=== PATIENT | female | born 1960 | race African-American/Black ===

== ENCOUNTER → 2016-03-29 | Outpatient (CLI) | payer BC ==
[2014-02-26 10:55] VITALS: BP 133/64
[~2016-03-29] MED LIST: AMLO5TAB2 PO; CLON1TAB3 PO; ESCI20TA PO; FERR12.5 PO; FERR500P8 PO; HYDR25TA9 PO; LISI40TA PO; METF500T4 PO; METF850T2 PO; OMEP20CA9 PO
--- NOTE | 2016-03-29 16:47 | KCIC ---
PROCEDURE Maxillofacial CT without contrast. HISTORY Chronic sinusitis, on antibiotics and steroids, congestion and drainage TECHNIQUE Noncontrast CT imaging was performed of the maxillofacial region, multiplanar reconstruction images submitted. Exposure: One or more of the following individualized dose reduction techniques were utilized for this exam: 1. Automated exposure control. 2. Adjustment of the mA and/or kV according to patient size. 3. Use of iterative reconstruction technique. COMPARISON None FINDINGS There are no air-fluid levels of the paranasal sinuses. Paranasal sinuses are mostly aerated. There is a small mucous retention cyst of the inferior left maxillary sinus on the order of 0.8 centimeters. There is very mild mucosal thickening near the left ostiomeatal unit. Right ostiomeatal unit is patent. Mastoid air cells are aerated. Globes are symmetric in size and density. IMPRESSION Paranasal sinuses are overall aerated, no air-fluid levels. There is small left maxillary sinus mucous retention cyst, also very minimal mucosal thickening near the left ostiomeatal unit. Electronically signed by: Aren Acosta MD (Mar 29, 2016 16:46:22)
== END | disposition home or self-care (01) ==
LOC: KCIC CT 16:00
PROVIDERS: ATTEND Otolaryngology
DX: J32.8 Other chronic sinusitis (principal)
CPT/HCPCS: 70486

== ENCOUNTER 2016-10-11 18:11 | Emergency (ER) | payer BC ==
[~2016-10-11] VITALS: Ht 170.2 cm; Wt 133.8 kg
[~2016-10-11 18:11] MED LIST changes: -ESCI20TA PO; +ESCITALOPRAM OX20 MG PO
[2016-10-11 18:15] VITALS: BP 164/75
[2016-10-11] MEDS ORDERED: CETI10TA16 PO (18:25)
[2016-10-11] MEDS ORDERED: HYDR-2762 PO (18:25)
[2016-10-11] MEDS ORDERED: METF-620 PO (18:25)
[2016-10-11] MEDS ORDERED: CYCL10TA2 PO (18:25)
[2016-10-11] MEDS ORDERED: NAPR500T PO (18:34)
--- NOTE | 2016-10-11 18:35 | PHYS DOC ---
Past Medical History Past Medical History: Diabetes-Type II, Hypertension Past Surgical History: Appendectomy Alcohol Use: None Drug Use: None Adult General Chief Complaint Chief Complaint: LOWER BACK PAIN OR INJURY HPI HPI Patient is a 56 year old female presents to the emergency department with a two -week history of low back pain. Patient was seen by her primary care provider one week ago and placed on Flexeril and hydrocodone. She states the pain is persistent. She denies abdominal pain. She denies loss of bowel or bladder control. She denies loss of function or loss of sensation of lower extremity's. Review of Systems Review of Systems Constitutional: Denies fever or chills [] Eyes: Denies change in visual acuity, redness, or eye pain [] HENT: Denies nasal congestion or sore throat [] Respiratory: Denies cough or shortness of breath [] Cardiovascular: No additional information not addressed in HPI [] GI: Denies abdominal pain, nausea, vomiting, bloody stools or diarrhea [] : Denies dysuria or hematuria [] Musculoskeletal: Low back pain with radiation to bilateral hips Integument: Denies rash or skin lesions [] Neurologic: Denies headache, focal weakness or sensory changes [] Endocrine: Denies polyuria or polydipsia [] Current Medications Current Medications Current Medications Medications (Trade) Dose Ordered Sig/[facility] Start Time Stop Time Status Last Admin Dose Admin Orphenadrine Citrate (Norflex) 60 mg 1X ONCE 10/11/16 18:45 10/11/16 18:46 10/11/16 18:27 60 MG Allergies Allergies Allergies Coded Allergies Type Severity Reaction Last Updated Verified No Known Drug Allergies 04/29/13 No Physical Exam Physical Exam Constitutional: Well developed, morbidly obese Neck: Normal range of motion, no tenderness, supple, no stridor. [] Cardiovascular:Heart rate regular rhythm, no murmur [] Lungs & Thorax: Bilateral breath sounds clear to auscultation [] Abdomen: Obese, Bowel sounds normal, soft, no tenderness, no masses, no pulsatile masses. [] Skin: Warm, dry, no erythema, no rash. [] Back: Mild tenderness bilateral sacroiliac crest without midline tenderness tenderness into the bilateral hip. Negative straight raise leg test. No saddle anest. MS 5/5. Extremities: No tenderness, no cyanosis, no clubbing, ROM intact, no edema. [] Neurologic: Alert and oriented X 3, normal motor function, normal sensory function, no focal deficits noted. [] EKG EKG [] Radiology/Procedures Radiology/Procedures [] Course & Med Decision Making Course & Med Decision Making Pertinent Labs and Imaging studies reviewed. (See chart for details) [] Dragon Disclaimer Dragon Disclaimer This electronic medical record was generated, in whole or in part, using a voice recognition dictation system. Departure Departure Impression: Primary Impression: Sciatica Disposition: HOME, SELF-CARE Condition: STABLE Referrals: TAYLOR LAGOS MD (PCP) Patient Instructions: Sciatica Additional Instructions: Continue current medications as labeled and indicated. Follow up with your primary care provider one to 2 days. Scripts Naproxen (NAPROSYN) 500 Mg Tablet 500 MG PO BID Y for PAIN, #20 TAB Prov: TASNEEM GILL APRN 10/11/16 Problem Qualifiers Primary Impression: Sciatica Laterality: bilateral Qualified Codes: M54.31 - Sciatica, right side; M54.32 - Sciatica, left side TASNEEM GILL APRN Oct 11, 2016 18:35
[2016-10-11] MEDS ORDERED: ORPHENADRINE CITRATE 60 MG/2 ML VIAL. IM ONE (18:45)
== END 2016-10-11 18:54 | disposition home or self-care (01) ==
LOC: ER 18:11
DX: M54.42 Lumbago with sciatica, left side (principal); I10 Essential (primary) hypertension; E11.9 Type 2 diabetes mellitus without complications; Z90.49 Acquired absence of other specified parts of digestive tract
CPT/HCPCS: 96372; 99283; J2360

== ENCOUNTER 2016-11-09 16:55 | Emergency (ER) | payer BC ==
[~2016-11-09] VITALS: Ht 170.2 cm; Wt 133.8 kg
[~2016-11-09 16:55] MED LIST changes: +CETI10TA16 PO; +CYCL10TA2 PO; +HYDR-2762 PO; +METF-620 PO; +NAPR500T PO
[2016-11-09 17:18] VITALS: BP 126/63
--- NOTE | 2016-11-09 17:49 | PHYS DOC ---
Past Medical History Past Medical History: Anxiety, Bronchitis, Diabetes-Type II, Hypertension, Sciatica Additional Past Medical Histor: osteoarthritis Past Surgical History: Appendectomy Alcohol Use: None Drug Use: None Adult General Chief Complaint Chief Complaint: EARACHE/EAR PAIN [facility] HPI Patient is a 56 year old female with history of diabetes type 2, hypertension, bronchitis, who presents with left ear pain and sore throat that began yesterday. Patient denies any fever coughing or congestion. Review of Systems Review of Systems Constitutional: Denies fever or chills [] Eyes: Denies change in visual acuity, redness, or eye pain [] HENT: left ear pain and sore throat Respiratory: Denies cough or shortness of breath [] Cardiovascular: No additional information not addressed in HPI [] Musculoskeletal: Denies back pain or joint pain [] Integument: Denies rash or skin lesions [] Neurologic: Denies headache, focal weakness or sensory changes [] Allergies Allergies Allergies Coded Allergies Type Severity Reaction Last Updated Verified No Known Drug Allergies 04/29/13 No Physical Exam Physical Exam Constitutional: Well developed, well nourished, no acute distress, non-toxic appearance. [] HENT: Normocephalic, atraumatic, bilateral external ears normal, oropharynx moist, no oral exudates, nose normal. [] Eyes: PERRLA, EOMI, conjunctiva normal, no discharge. [] Neck: Normal range of motion, no tenderness, supple, no stridor. [] Cardiovascular:Heart rate regular rhythm, no murmur [] Lungs & Thorax: Bilateral breath sounds clear to auscultation [] Abdomen: Bowel sounds normal, soft, no tenderness, no masses, no pulsatile masses. [] Skin: Warm, dry, no erythema, no rash. [] Back: No tenderness, no CVA tenderness. [] Extremities: No tenderness, no cyanosis, no clubbing, ROM intact, no edema. [] Neurologic: Alert and oriented X 3, normal motor function, normal sensory function, no focal deficits noted. [] Psychologic: Affect normal, judgement normal, mood normal. [] Current Patient Data Vital Signs Vital Signs Date Time Temp Pulse Resp B/P (MAP) Pulse Ox O2 Delivery O2 Flow Rate FiO2 11/09/16 17:18 98.9 89 18 100 Room Air 98.9 EKG EKG [] Radiology/Procedures Radiology/Procedures [] Course & Med Decision Making Course & Med Decision Making Pertinent Labs and Imaging studies reviewed. (See chart for details) Patient has left otitis media and pharyngitis. Discharged with amoxicillin. Tylenol /Motrin for pain or fever. Follow-up with PCP in 1-2 weeks. Dragon Disclaimer Dragon Disclaimer This electronic medical record was generated, in whole or in part, using a voice recognition dictation system. Departure Departure Impression: Primary Impression: Otitis media, left Additional Impression: Pharyngitis, acute Disposition: 01 HOME, SELF-CARE Condition: STABLE Referrals: TAYLOR LAGOS MD (PCP) follow up with your doctor in 1 week Patient Instructions: Otitis Media, Adult, Viral Pharyngitis Additional Instructions: You were seen for left otitis media and pharyngitis. Complete your antibiotics, use saltwater gargles for sore throat. Take Tylenol/ Motrin for pain or fever. Follow-up with your doctor in one week. Scripts Amoxicillin (AMOXICILLIN) 875 Mg Tablet 1 TAB PO BID, #20 TAB Prov: ROBERT CARVER APRN 11/09/16 Problem Qualifiers Primary Impression: Otitis media, left Otitis media type: other nonsuppurative Chronicity: acute Recurrence: not specified as recurrent Qualified Codes: H65.192 - Other acute nonsuppurative otitis media, left ear Additional Impression: Pharyngitis, acute Pharyngitis/tonsillitis etiology: unspecified etiology Qualified Codes: J02.9 - Acute pharyngitis, unspecified ROBERT CARVER APRN Nov 09, 2016 17:49
[2016-11-09] MEDS ORDERED: AMOX875T PO (17:56)
== END 2016-11-09 18:08 | disposition home or self-care (01) ==
LOC: ER 16:55
DX: H65.192 Other acute nonsuppurative otitis media, left ear (principal); J02.9 Acute pharyngitis, unspecified; F41.9 Anxiety disorder, unspecified; E11.9 Type 2 diabetes mellitus without complications; I10 Essential (primary) hypertension; M19.90 Unspecified osteoarthritis, unspecified site
CPT/HCPCS: 99283

== ENCOUNTER 2017-07-01 11:04 | Emergency (ER) | payer BC ==
[2017-07-01] MEDS: IBUPROFEN 800 MG TABLET. PO (12:15)
== END 2017-07-01 13:02 | disposition home or self-care (01) ==
LOC: ER 11:04
DX: S86.002A Unspecified injury of left Achilles tendon, initial encounter (principal); E11.9 Type 2 diabetes mellitus without complications; M19.90 Unspecified osteoarthritis, unspecified site; I10 Essential (primary) hypertension; F41.9 Anxiety disorder, unspecified; Z90.49 Acquired absence of other specified parts of digestive tract; X58.XXXA Exposure to other specified factors, initial encounter; Y93.89 Activity, other specified; Y92.89 Other specified places as the place of occurrence of the external cause; Y99.8 Other external cause status
CPT/HCPCS: 73610; 99284; L4350

== ENCOUNTER → 2017-08-19 | Outpatient (CLI) | payer BC | END | disposition home or self-care (01) | LOC: KCIC DEXA 14:16 | DX: Z12.31 Encounter for screening mammogram for malignant neoplasm of breast (principal); Z13.820 Encounter for screening for osteoporosis; E11.9 Type 2 diabetes mellitus without complications; Z78.0 Asymptomatic menopausal state | CPT/HCPCS: 77067; 77080 ==

== ENCOUNTER 2018-12-31 15:31 | Emergency (ER) | payer BC ==
[~2018-12-31] VITALS: Ht 170.2 cm; Wt 136.1 kg
[~2018-12-31 15:31] MED LIST changes: +AMLO5TAB10 PO; -AMLO5TAB2 PO; +AMOX875T PO; -CLON1TAB3 PO; +CLONAZEPAM1 MG PO; +HYDR-2145 PO; -HYDR-2762 PO; +HYDR-2765 PO; -HYDR25TA9 PO; +LISI-130 PO; -LISI40TA PO; -METF-620 PO; +METF10007 PO; +METF500T16 PO; -METF500T4 PO; -METF850T2 PO; +METF850T8 PO; +NAPR-683 PO; -NAPR500T PO; +OMEP20CA10 PO; -OMEP20CA9 PO
--- NOTE | 2018-12-31 16:10 | PHYS DOC ---
Past Medical History Past Medical History: Anxiety, Bronchitis, Diabetes-Type II, Hypertension, Sciatica, Other Additional Past Medical Histor: osteoarthritis Past Surgical History: Appendectomy Alcohol Use: None Drug Use: None Adult General Chief Complaint Chief Complaint: DIZZY/LIGHT HEADED HPI HPI Patient is a 58 year old female who presents with multiple complaints. Patient states she's had nasal congestion, wheezing, cough and lightheaded the last 3-4 days. Patient states that her blood sugars have also been elevated and she only takes pills for her diabetes. Patient states she's also anemic she has ringing in her ears at times. Patient also complains that her kidney function has been elevated. Patient denies any pain at this time. Review of Systems Review of Systems HENT: Denies nasal congestion, ringing in ears or denies sore throat [] Respiratory: cough or wheezing, denies shortness of breath [] Neurologic: Light headedness, Denies headache, focal weakness or sensory changes [] All other systems were reviewed and found to be within normal limits, except as documented in this note. Current Medications Current Medications Current Medications Medications (Trade) Dose Ordered Sig/Moni Start Time Stop Time Status Last Admin Dose Admin Meclizine HCl (Antivert) 25 mg 1X ONCE 12/31/18 17:30 12/31/18 17:31 DC 12/31/18 17:21 25 MG Allergies Allergies Allergies Coded Allergies Type Severity Reaction Last Updated Verified No Known Drug Allergies 04/29/13 No Physical Exam Physical Exam Constitutional: Well developed, well nourished, no acute distress, non-toxic appearance. [] HENT: Normocephalic, atraumatic, bilateral external ears normal, oropharynx moist, no oral exudates, nose normal. [] Eyes: PERRLA, EOMI, conjunctiva normal, no discharge. [] Neck: Normal range of motion, no tenderness, supple, no stridor. [] Cardiovascular:Heart rate regular rhythm, no murmur [] Lungs & Thorax: Bilateral breath sounds clear to auscultation [] Abdomen: Bowel sounds normal, soft, no tenderness, no masses, no pulsatile masses. [] Skin: Warm, dry, no erythema, no rash. [] Back: No tenderness, no CVA tenderness. [] Extremities: No tenderness, no cyanosis, no clubbing, ROM intact, no edema. [] Neurologic: Alert and oriented X 3, normal motor function, normal sensory function, no focal deficits noted. [] Psychologic: Affect normal, judgement normal, mood normal. Normal Physical Exam[] Current Patient Data Vital Signs Vital Signs Date Time Temp Pulse Resp B/P (MAP) Pulse Ox O2 Delivery O2 Flow Rate FiO2 12/31/18 15:46 98.0 91 22 146/77 (100) 99 Room Air 98.0 Lab Values Laboratory Tests Test 12/31/18 15:48 12/31/18 16:05 Urine Collection Type Unknown Urine Color Yellow Urine Clarity Clear Urine pH 5.0 Urine Specific [place] 1.010 Urine Protein Negative mg/dL (NEG-TRACE) Urine Glucose (UA) Negative mg/dL (NEG) Urine Ketones (Stick) Negative mg/dL (NEG) Urine Blood Trace (NEG) Urine Nitrite Negative (NEG) Urine Bilirubin Negative (NEG) Urine Urobilinogen Dipstick 0.2 mg/dL (0.2 mg/dL) Urine Leukocyte Esterase Negative (NEG) Urine RBC Occ /HPF (0-2) Urine WBC Occ /HPF (0-4) Urine Squamous Epithelial Cells Few /LPF Urine Bacteria Many /HPF (0-FEW) White Blood Count 7.0 x10^3/uL (4.0-11.0) Red Blood Count 4.61 x10^6/uL (3.50-5.40) Hemoglobin 11.1 g/dL (12.0-15.5) L Hematocrit 35.2 % (36.0-47.0) L Mean Corpuscular Volume 77 fL (79-100) L Mean Corpuscular Hemoglobin 24 pg (25-35) L Mean Corpuscular Hemoglobin Concent 32 g/dL (31-37) Red Cell Distribution Width 15.0 % (11.5-14.5) H Platelet Count 202 x10^3/uL (140-400) Neutrophils (%) (Auto) 65 % (31-73) Lymphocytes (%) (Auto) 27 % (24-48) Monocytes (%) (Auto) 6 % (0-9) Eosinophils (%) (Auto) 2 % (0-3) Basophils (%) (Auto) 1 % (0-3) Neutrophils # (Auto) 4.5 x10^3/uL (1.8-7.7) Lymphocytes # (Auto) 1.9 x10^3/uL (1.0-4.8) Monocytes # (Auto) 0.4 x10^3/uL (0.0-1.1) Eosinophils # (Auto) 0.2 x10^3/uL (0.0-0.7) Basophils # (Auto) 0.0 x10^3/uL (0.0-0.2) Sodium Level 138 mmol/L (136-145) Potassium Level 4.0 mmol/L (3.5-5.1) Chloride Level 101 mmol/L (98-107) Carbon Dioxide Level 27 mmol/L (21-32) Anion Gap 10 (6-14) Blood Urea Nitrogen 29 mg/dL (7-20) H Creatinine 1.8 mg/dL (0.6-1.0) H Estimated GFR (Cockcroft-Gault) 35.1 BUN/Creatinine Ratio 16 (6-20) Glucose Level 109 mg/dL (70-99) H Calcium Level 11.0 mg/dL (8.5-10.1) H Total Bilirubin 0.1 mg/dL (0.2-1.0) L Aspartate Amino Transferase (AST) 15 U/L (15-37) Alanine Aminotransferase (ALT) 21 U/L (14-59) Alkaline Phosphatase 108 U/L (46-116) Troponin I Quantitative < 0.017 ng/mL (0.000-0.055) Total Protein 9.1 g/dL (6.4-8.2) H Albumin 3.6 g/dL (3.4-5.0) Albumin/Globulin Ratio 0.7 (1.0-1.7) L Laboratory Tests 12/31/18 16:05 Laboratory Tests 12/31/18 16:05 EKG EKG Sinus Rhythm without STEMI[] Interpretation Time: [address] Louis Radiology/Procedures Radiology/Procedures [] Impressions: [facility] [address] [place] [address] IMAGING REPORT Signed PATIENT: GEO BILLS ACCOUNT: [id number] : 1960 LOCATION: ER AGE: 58 SEX: F EXAM STATUS: REG ER ORD. PHYSICIAN: NEDRA HERNANDEZ APRN REASON: dizziness PROCEDURE: CT HEAD WO CONTRAST EXAM: CT HEAD WITHOUT CONTRAST. HISTORY: Dizziness, vertigo. TECHNIQUE: Computed tomography of the head was performed without intravenous contrast. *One or more of the following individualized dose reduction techniques were utilized for this examination: 1. Automated exposure control. 2. Adjustment of the mA and/or kV according to patient size. 3. Use of iterative reconstruction technique. COMPARISON: 04/29/2013. FINDINGS: There is no intracranial hemorrhage. Ragland-white differentiation is preserved. The ventricles are normal in size and position. The visualized paranasal sinuses appear clear. The orbits are unremarkable. The temporal bones are unremarkable. The calvarium reveals no suspicious lesions. IMPRESSION: 1. No acute intracranial findings. Electronically signed by: Mery Tsang MD (12/31/2018 4:42 PM) [facility] DICTATED and SIGNED BY: JENSEN TSANG MD DATE: 12/31/[address] [facility] [address] [place], [place] [id number] IMAGING REPORT Signed PATIENT: GEO BILLS ACCOUNT: [id number] : 1960 LOCATION: ER AGE: 58 SEX: F EXAM STATUS: REG ER ORD. PHYSICIAN: NEDRA HERNANDEZ APRN REASON: dizziness, cough, wheezing PROCEDURE: CHEST PA & LATERAL EXAM: CHEST 2 VIEWS. HISTORY: Dizziness, cough, wheezing. COMPARISON: None. FINDINGS: Frontal and lateral views of the chest are obtained. There are no confluent infiltrates. There is no pneumothorax or pleural effusion. The heart is not enlarged. IMPRESSION: 1. No confluent infiltrates. Electronically signed by: Mery Tsang MD (12/31/2018 5:01 PM) [facility] DICTATED and SIGNED BY: JENSEN TSANG MD DATE: 12/31/18 1701 Course & Med Decision Making Course & Med Decision Making Alert and oriented. Ambulatory to steady gait. Skin pink warm and dry. Extremities membranes are moist. PERRLA. Patient denies any weaknesses, numbness or tingling other patient states that she does have neuropathy from her diabetes. Patient denies chest pain or shortness of air but states that she is unsure if she is wheezing or having shortness of air. Patient stopped smoking in 2006. Patient states that she's never been diagnosed with any lung problems. Throat is pink but there is no swelling or exudates. Bilateral eardrums are pearly white. Lungs are clear to auscultation all lobes. No nystagmus. Patient denies headache, nausea, vomiting, abdominal pain, back pain, neck pain, chest pain, shortness of air, weaknesses, visual changes. Speaks in full clear sentences. Orthostatics: layin/56, 93; sittin/68, 89; standin/73, 115. Patient stating that when she stood up she felt dizzy. Patient continues to be steady on her feet and in no distress. CT head and chest Xray show no acute findings. Urinalysis is contaminated. Patient to return to the ED if she has increased dizziness, headache, chest pain, soa to return to the ED. Other alfonso the patient needs to follow up with her primary care provider as soon as possible. Dragon Disclaimer Dragon Disclaimer This electronic medical record was generated, in whole or in part, using a voice recognition dictation system. NIHSS Stroke Scale NIH Stroke Scale: NIH Stroke Scale Response (Comments) Value Level of Consciousness: 0 Alert/Responsive 0 LOC Questions: 0 Answers both correctly 0 LOC Commands: 0 Performs both tasks 0 Best Gaze: 0 Normal 0 Visual: 0 No visual loss 0 Facial Palsy: 0 Normal, symmetrical 0 Motor - Left Arm 0 No drift 0 Motor - Right Arm 0 No drift 0 Motor - Left Leg 0 No drift 0 Motor: Right Leg 0 No drift 0 Limb Ataxia: 0 Absent 0 Sensory: 0 No loss 0 Best Language: 0 Normal 0 Dysathria: 0 Normal 0 Extinction and Inattention: 0 Normal 0 Total 0 Departure Departure Impression: Primary Impression: Cough Additional Impression: Light-headed feeling Disposition: 01 HOME, SELF-CARE Condition: STABLE Referrals: UNKNOWN PCP NAME (PCP) Patient Instructions: Benign Positional Vertigo, Cough, Adult, Dizziness Additional Instructions: Follow up with primary care provider as soon as possible. Go from sitting to standing slowly. If you begin having chest pain, soa, increased dizziness, or severe headache return to ED. Scripts Albuterol Sulfate (PROAIR HFA INHALER) 8.5 Gm Hfa.aer.ad 1 PUFF INH PRN Q6HRS PRN for SHORTNESS OF BREATH, #1 INHALER 0 Refills Prov: NEDRA HERNANDEZ APRN 12/31/18 Methylprednisolone (MEDROL) 4 Mg Tab.ds.pk 1 PKG PO UD, #1 PKG Prov: NEDRA HERNANDEZ APRN 12/31/18 Problem Qualifiers NEDRA HERNANDEZ APRN Dec 31, 2018 16:10
[2018-12-31 16:16] LABS: BASO % 1 % (0-3); EOS # 0.2 x10^3/uL (0.0-0.7); EOS % 2 % (0-3); HEMATOCRIT 35.2 % (36.0-47.0); HEMOGLOBIN 11.1 g/dL (12.0-15.5); LYMPH # 1.9 x10^3/uL (1.0-4.8); LYMPH % 27 % (24-48); MEAN CORPUSCULAR HEMOGLOBIN 24 pg (25-35); MEAN CORPUSCULAR HGB CONC 32 g/dL (31-37); MEAN CORPUSCULAR VOLUME 77 fL (79-100); MONO # 0.4 x10^3/uL (0.0-1.1); MONO % 6 % (0-9); NEUT # 4.5 x10^3/uL (1.8-7.7); NEUT % 65 % (31-73); PLATELET COUNT 202 x10^3/uL (140-400); RED BLOOD COUNT 4.61 x10^6/uL (3.50-5.40)
[2018-12-31 16:32] LABS: CREATININE 1.8 mg/dL (0.6-1.0); GFR 35.1
[2018-12-31 16:39] LABS: ALBUMIN 3.6 g/dL (3.4-5.0); ALBUMIN/GLOBULIN RATIO 0.7 (1.0-1.7); TOTAL BILIRUBIN 0.1 mg/dL (0.2-1.0); TOTAL PROTEIN 9.1 g/dL (6.4-8.2)
--- NOTE | 2018-12-31 16:45 | RAD ---
EXAM: CT HEAD WITHOUT CONTRAST. HISTORY: Dizziness, vertigo. TECHNIQUE: Computed tomography of the head was performed without intravenous contrast. *One or more of the following individualized dose reduction techniques were utilized for this examination: 1. Automated exposure control. 2. Adjustment of the mA and/or kV according to patient size. 3. Use of iterative reconstruction technique. COMPARISON: 04/29/2013. FINDINGS: There is no intracranial hemorrhage. Ragland-white differentiation is preserved. The ventricles are normal in size and position. The visualized paranasal sinuses appear clear. The orbits are unremarkable. The temporal bones are unremarkable. The calvarium reveals no suspicious lesions. IMPRESSION: 1. No acute intracranial findings. Electronically signed by: Mery Tsang MD (12/31/2018 4:42 PM) [facility]
--- NOTE | 2018-12-31 16:48 | EKG ---
[facility] [address] [place] [address] Test Date: 2018-12-31 Test Time: 16:09:57 Pat Name: GEO BILLS Department: Room: Gender: F Driller Hand: : 1960 Requested By: NEDRA HERNANDEZ Order Number: [id number] Reading MD: Graham Ghotra MD Measurements Intervals [place] Rate: 86 P: 66 VT: 172 QRS: 6 QRSD: 76 T: 24 QT: 332 QTc: 400 Interpretive Statements SINUS RHYTHM NON-SPECIFIC ST/T CHANGES Electronically Signed On 01-14-2019 8:50:57 [employer] by Graham Ghotra MD
--- NOTE | 2018-12-31 17:04 | RAD ---
EXAM: CHEST 2 VIEWS. HISTORY: Dizziness, cough, wheezing. COMPARISON: None. FINDINGS: Frontal and lateral views of the chest are obtained. There are no confluent infiltrates. There is no pneumothorax or pleural effusion. The heart is not enlarged. IMPRESSION: 1. No confluent infiltrates. Electronically signed by: Mery Tsang MD (12/31/2018 5:01 PM) [facility]
[2018-12-31] MEDS ORDERED: MECLIZINE HCL 12.5 MG TABLET. PO ONE (17:30)
[2018-12-31] MEDS ORDERED: ALBU2.5V8 INH (17:38)
[2018-12-31] MEDS ORDERED: METH4TAB2 PO (17:38)
[2018-12-31 17:42] LABS: BILIRUBIN,URINE NEGATIVE (NEG); CLARITY,URINE CLEAR; COLOR,URINE YELLOW; NITRITE,URINE NEGATIVE (NEG); PROTEIN,URINE NEGATIVE (NEG-TRACE); UROBILINOGEN,URINE 0.2 mg/dL (0.2 mg/dL)
[2018-12-31 17:49] LABS: SQUAMOUS EPITHELIAL CELL,UR FEW /LPF
[2018-12-31 17:50] LABS: BACTERIA,URINE MANY /HPF (0-FEW); RBC,URINE OCC /HPF (0-2); WBC,URINE OCC /HPF (0-4)
[2018-12-31 17:59] VITALS: BP 146/77
== END 2018-12-31 18:16 | disposition home or self-care (01) ==
LOC: ER 15:31
DX: R05 Cough (principal); R42 Dizziness and giddiness; R09.81 Nasal congestion; E11.9 Type 2 diabetes mellitus without complications; I10 Essential (primary) hypertension
CPT/HCPCS: 36415; 70450; 71046; 80053; 81001; 84484; 85025; 87086; 93005; 99285; J8597

== ENCOUNTER → 2019-05-11 | Outpatient (CLI) | payer BC ==
[~2019-05-11] MED LIST changes: +ALBU2.5V8 INH; +METH4TAB2 PO; -OMEP20CA10 PO; +OMEP20CA16 PO
--- NOTE | 2019-05-11 13:11 | RAD ---
Bilateral digital diagnostic mammogram. INDICATION: Bilateral breast pain. Patient is due for screening. COMPARISON: 08/19/2017, 09/30/2008. TECHNIQUE: Bilateral CC and MLO views were obtained with 2-D and 3-D technique and reviewed with computer-aided detection FINDINGS: Scattered fibroglandular densities. No developing mass, suspicious calcifications architectural distortion. Benign intramammary lymph nodes are present bilaterally. IMPRESSION: Benign findings. No evidence of malignancy. Recommend return to routine screening next due in one year. BI-RADS Category 2 Benign Patient entered into a reminder system with target due date for next mammogram
== END | disposition home or self-care (01) ==
LOC: MAMMO 09:54
PROVIDERS: ATTEND Internal Medicine
DX: N64.4 Mastodynia (principal)
CPT/HCPCS: 77066

== ENCOUNTER 2019-12-01 08:06 | Emergency (ER) | payer BC ==
[~2019-12-01] VITALS: Ht 171.4 cm; Wt 136.4 kg
[2019-12-01 08:20] VITALS: BP 159/82
--- NOTE | 2019-12-01 09:05 | PHYS DOC ---
Past Medical History Past Medical History: Anxiety, Bronchitis, Diabetes-Type II, Hypertension, Sciatica, Other Additional Past Medical Histor: osteoarthritis Past Surgical History: Appendectomy Smoking Status: Former Smoker Alcohol Use: None Drug Use: None General Adult EDM: Chief Complaint: OTHER COMPLAINTS HPI: HPI: Patient is a 59 year old male history of diabetic, on metformin, presented to ER for evaluation of burning sensation on the bottom of her feet bilaterally for about 10 days. Patient denies any swelling, no pain, no trouble breathing. Patient denies any injury. Review of Systems: Review of Systems: Constitutional: Denies fever or chills. [] Eyes: Denies change in visual acuity. [] HENT: Denies nasal congestion or sore throat. [] Respiratory: Denies cough or shortness of breath. [] Cardiovascular: Denies chest pain or edema. [] GI: Denies abdominal pain, nausea, vomiting, bloody stools or diarrhea. [] : Denies dysuria. [] Musculoskeletal: Denies back pain or joint pain. [] Integument: Denies rash. [] Neurologic: Denies headache, focal weakness or sensory changes. [] Endocrine: Denies polyuria or polydipsia. [] Lymphatic: Denies swollen glands. [] Psychiatric: Denies depression or anxiety. [] Heart Score: Risk Factors: Risk Factors: DM, Current or recent (<one month) smoker, HTN, HLP, family h istory of CAD, obesity. Risk Scores: Score 0 - 3: 2.5% MACE over next 6 weeks - Discharge Home Score 4 - 6: 20.3% MACE over next 6 weeks - Admit for Clinical Observation Score 7 - 10: 72.7% MACE over next 6 weeks - Early Invasive Strategies Allergies: Allergies: Allergies Coded Allergies Type Severity Reaction Last Updated Verified No Known Drug Allergies 04/29/13 No Physical Exam: PE: Constitutional: Well developed, well nourished, no acute distress, non-toxic appearance. [] HENT: Normocephalic, atraumatic, bilateral external ears normal, oropharynx moist, no oral exudates, nose normal. [] Eyes: PERRLA, EOMI, conjunctiva normal, no discharge. [] Neck: Normal range of motion, no tenderness, supple, no stridor. [] Cardiovascular:Heart rate regular rhythm, no murmur [] Lungs & Thorax: Bilateral breath sounds clear to auscultation [] Abdomen: Bowel sounds normal, soft, no tenderness, no masses, no pulsatile masses. [] Skin: Warm, dry, no erythema, no rash. [] Back: No tenderness, no CVA tenderness. [] Extremities: No tenderness, no cyanosis, no clubbing, ROM intact, no edema. There is good circulation, extremity warm to the touch. Neurologic: Alert and oriented X 3, normal motor function, normal sensory function, no focal deficits noted. [] Psychologic: Affect normal, judgement normal, mood normal. [] Current Patient Data: Labs: Laboratory Tests Test 12/01/19 08:34 Glucose (Fingerstick) 183 mg/dL (70-99) H EKG: EKG: [] Radiology/Procedures: Radiology/Procedures: [] Course & Med Decision Making: Course & Med Decision Making Pertinent Labs and Imaging studies reviewed. (See chart for details) Patient is a 59-year-old female who has diabetic neuropathy, her blood sugar was okay here, she will need to follow-up with her family doctor for further evalua tion and treatment. Dragon Disclaimer: Dragon Disclaimer: This electronic medical record was generated, in whole or in part, using a voice recognition dictation system. Departure Departure Impression: Primary Impression: Diabetic neuropathy Disposition: 01 HOME, SELF-CARE Condition: STABLE Referrals: PEE MCDANIELS MD (PCP) please follow up with your family doctor this week. Patient Instructions: Diabetic Neuropathy Additional Instructions: Thank you for visiting our Emergency Department. We appreciate you trusting us with your care. If any additional problems come up don't hesitate to return to visit us. Please follow up with your primary care provider so they can plan a dditional care if needed and know about the problem that you had. If symptoms worsen come back to the Emergency Department. Any concerning symptoms that start such as chest pain, shortness of air, weakness or numbness on one side of the body, running high fevers or any other concerning symptoms return to the ER. Justicifation of Admission Dx: Justifications for Admission: Justification of Admission Dx: N/A MARTÍNEZ MCKEON DO Dec 01, 2019 09:05
== END 2019-12-01 09:16 | disposition home or self-care (01) ==
LOC: ER 08:06
DX: E11.40 Type 2 diabetes mellitus with diabetic neuropathy, unspecified (principal); R20.8 Other disturbances of skin sensation; F41.9 Anxiety disorder, unspecified; I10 Essential (primary) hypertension; Z90.89 Acquired absence of other organs; Z87.891 Personal history of nicotine dependence
CPT/HCPCS: 82962; 99283